=== PATIENT | female | born 1985 | race Caucasian/White ===

== ENCOUNTER 2016-12-12 13:25 | Emergency (ER) | payer OTHER ==
[~2016-12-12] VITALS: Ht 167.6 cm; Wt 45.7 kg
[~2016-12-12 13:25] MED LIST: AUGMENTIN875 MG PO; IBUPROFEN800 MG PO; NAPROSYN500 MG PO; NORCO 5/3251 TABLET PO; OMEPRAZOLE20 MG PO; TUMS500 MG PO
[2016-12-12] MEDS ORDERED: AUGMENTIN875 MG PO (16:42)
[2016-12-12] MEDS ORDERED: INDOCIN50 MG PO (16:43)
[2016-12-12 16:57] VITALS: BP 118/80
== END 2016-12-12 16:58 | disposition home or self-care (01) ==
LOC: EME 13:25
DX: K02.9 Dental caries, unspecified (principal)
CPT/HCPCS: 99281; 99284; J1100; J1885; J2543; J3010